=== PATIENT | female | born 2000 | race African-American/Black ===

== ENCOUNTER 2025-09-14 09:25 | Emergency (ER) | payer MEDICAID, SELFPAY ==
[2025-09-14 11:25] LABS: #Basophils 0.05 10x3/uL (0.0-0.2); #Eosinophils 0.18 10x3/uL (0.0-0.5); #Monocytes 1.34 10x3/uL (0.0-1.1); #Neutrophils 13.95 10x3/uL (1.5-8.4); %Basophils 0.3 % (0.0-2.0); %Eosinophils 1.0 % (0.0-6.0); %Lymphocytes 9.4 % (18.0-47.0); %Monocytes 7.8 % (0.0-10.0); %Neutrophils 81.2 % (40.0-75.0); Hematocrit 38.3 % (34.9-44.5); Hemoglobin 12.2 g/dL (12.0-15.5); Mean Corpuscular Hemoglobin 29.6 pg (27.0-33.0); Mean Corpuscular Volume 93.0 fL (81.6-98.3); Platelet Count 330 10x3/uL (150-450); Red Blood Cell (RBC) Count 4.12 10x6/uL (3.90-5.03); White Blood Cell (WBC) Count 17.19 10x3/uL (3.5-10.5)
[2025-09-14 11:34] LABS: BHCG - Serum Negative (NEGATIVE); Pregs Control Background? CLEAR/WHITE (CLR/WHITE); Pregs Control Bar Appear? YES (CONTROL BAR)
[2025-09-14 11:40] LABS: ALT (SGPT) 12 U/L (Less than 34); AST (SGOT) 25 U/L (11-34); Albumin 4.0 g/dL (3.1-4.5); Alkaline Phosphatase 53 U/L (40-110); Anion Gap 13 mmol/L (10-20); BUN (Urea Nitrogen) 15 mg/dL (7.0-18.7); Bilirubin, Total 0.2 mg/dL (0.3-1.2); Calc. Creatinine Clearance 0 mL/min (70-130); Calcium 9.6 mg/dL (7.8-10.44); Carbon Dioxide 26 mmol/L (22-29); Chloride 106 mmol/L (98-107); Globulin 4.3 g/dL (2.4-3.5); Glucose 93 mg/dL (70-105); Potassium 4.8 mmol/L (3.5-5.1); Sodium 140 mmol/L (136-145)
[2025-09-14] MEDS ORDERED: Iopamidol 300 61% 100 ML VIAL FS ONE (11:40)
[2025-09-14] MEDS ORDERED: Ketorolac Tromethamine 30 MG (1 mL) VIAL ONE (12:55)
[2025-09-14] MEDS ORDERED: metroNIDAZOLE 500 MG TAB ONE (16:04)
== END 2025-09-14 15:15 | disposition home or self-care (01) ==
LOC: CSHERS 09:25
DX: K61.0 Anal abscess (principal); F17.290 Nicotine dependence, other tobacco product, uncomplicated
CPT/HCPCS: 74177; 80053; 84703; 85025; 96374; J1885; Q9967